=== PATIENT | male | born 1960 | race Caucasian/White ===

== ENCOUNTER 2017-03-11 09:12 | Outpatient (CLI) | payer OTHER | END 2017-03-11 09:20 | disposition home or self-care (01) | LOC: SONOGRAMA 09:12 | DX: I10 Essential (primary) hypertension (principal); R10.9 Unspecified abdominal pain ==

== ENCOUNTER 2017-03-11 09:22 | Outpatient (CLI) | payer OTHER | END 2017-03-11 09:32 | disposition home or self-care (01) | LOC: RAD 09:22 | DX: I10 Essential (primary) hypertension (principal); R10.9 Unspecified abdominal pain; Z72.0 Tobacco use ==

== ENCOUNTER → 2018-07-13 | Emergency (ER) | payer OTHER | END | disposition left against medical advice (07) | LOC: ER 09:18 | DX: Z53.20 Procedure and treatment not carried out because of patient's decision for unspecified reasons (principal) ==

== ENCOUNTER 2020-05-15 05:43 | Day surgery (SDC) | payer OTHER ==
[2020-05-15] MEDS ORDERED: CEFADROXIL500 MG PO (09:12)
[2020-05-15] MEDS ORDERED: ALEVE220 M1 PO (09:12)
[2020-05-15] MEDS ORDERED: PERCOCET 5-3251 EACH PO (09:12)
== END 2020-05-15 11:15 | disposition home or self-care (01) ==
LOC: CIR.AMB 05:43
PROVIDERS: ATTEND Orthopaedic Surgery
DX: S52.571A Other intraarticular fracture of lower end of right radius, initial encounter for closed fracture (principal); Z20.822 Contact with and (suspected) exposure to COVID-19
CPT/HCPCS: 25609; C1776; 20902